=== PATIENT | female | born 1960 | race Caucasian/White ===

== ENCOUNTER → 2018-05-20 | Outpatient (CLI) | payer OTHER ==
[2018-05-21 07:05] LABS: HEPATITIS B SURFACE AG Negative (Negative); HEPATITIS C VIRUS ANTIBODY <0.1 s/co (0.0-0.9)
== END | disposition home or self-care (01) ==
LOC: LAB 09:29 → US 10:00
PROVIDERS: Internal Medicine
DX: K76.0 Fatty (change of) liver, not elsewhere classified (principal); R94.5 Abnormal results of liver function studies; I10 Essential (primary) hypertension; E78.5 Hyperlipidemia, unspecified

== ENCOUNTER → 2018-07-15 | Outpatient (CLI) | payer OTHER | END | disposition home or self-care (01) | LOC: WOUNDCARE 04:57 | DX: S91.302A Unspecified open wound, left foot, initial encounter (principal); S91.301A Unspecified open wound, right foot, initial encounter; L20.9 Atopic dermatitis, unspecified; I10 Essential (primary) hypertension; K21.9 Gastro-esophageal reflux disease without esophagitis; F17.290 Nicotine dependence, other tobacco product, uncomplicated; X58.XXXA Exposure to other specified factors, initial encounter; Y93.89 Activity, other specified; Y92.89 Other specified places as the place of occurrence of the external cause; Y99.8 Other external cause status ==

== ENCOUNTER → 2018-07-27 | Outpatient (CLI) | payer OTHER | END | disposition home or self-care (01) | LOC: WOUNDCARE 02:24 | DX: S91.302D Unspecified open wound, left foot, subsequent encounter (principal); S91.301D Unspecified open wound, right foot, subsequent encounter; L20.9 Atopic dermatitis, unspecified; I10 Essential (primary) hypertension; K21.9 Gastro-esophageal reflux disease without esophagitis; F17.290 Nicotine dependence, other tobacco product, uncomplicated; X58.XXXD Exposure to other specified factors, subsequent encounter ==

== ENCOUNTER 2018-08-05 18:48 | Emergency (ER) | payer OTHER ==
[~2018-08-05] VITALS: Wt 90.7 kg
[2018-08-05 19:26] LABS: BASO # 0.1 10*3/uL (0.0-0.1); BASO % 0.9 % (0.0-1.0); EOS # 0.3 10*3/uL (0.0-0.4); EOS % 3.3 % (1.0-4.0); HEMATOCRIT 34.5 % (37.0-47.0); LYMPH # 1.8 10*3/uL (1.3-4.4); MEAN CELL VOLUME 105.2 fl (81.0-99.0); MEAN CORPUSCULAR HGB 36.6 pg (27.0-31.0); MEAN CORPUSCULAR HGB CONC 34.8 g/dl (33.0-37.0); MEAN PLATELET VOLUME 10.3 fl (9.6-12.3); MONO # 0.4 10*3/uL (0.1-1.0); MONO % 4.2 % (3.0-9.0); NEUT # 6.3 10*3/uL (2.3-7.9); NEUT % 71.4 % (47.0-73.0); PLATELET COUNT AUTOMATED 161 10*3/uL (130-400); RED BLOOD COUNT 3.28 10*6/uL (4.10-5.10); RED CELL DISTRI WIDTH 15.2 % (0-14.5); WHITE BLOOD COUNT 8.9 10*3/uL (4.8-10.8)
[2018-08-05 19:51] LABS: ALBUMIN 4.4 gm/dl (3.1-4.5); ALKALINE PHOSPHATASE 106 U/L (45-117); BUN 10 mg/dl (7-24); CHLORIDE 102 mmol/L (98-107); CREATININE 0.63 mg/dL (0.55-1.02); POTASSIUM 3.7 mmol/L (3.5-5.1); SGOT/AST 91 IU/L (3-35); SGPT/ALT 61 U/L (12-78); SODIUM 139 mmol/L (136-145); TOTAL PROTEIN 8.5 gm/dL (6.4-8.2)
== END 2018-08-05 21:50 | disposition left against medical advice (07) ==
LOC: ED 18:48
PROVIDERS: Physician Assistant
DX: L03.116 Cellulitis of left lower limb (principal); L03.115 Cellulitis of right lower limb; Z88.5 Allergy status to narcotic agent

== ENCOUNTER → 2018-09-30 | Outpatient (CLI) | payer OTHER ==
[2018-09-30 15:54] LABS: HEMATOCRIT 34.6 % (37.0-47.0); HEMOGLOBIN 11.8 g/dl (12.0-16.0); MEAN CELL VOLUME 109.1 fl (81.0-99.0); MEAN CORPUSCULAR HGB 37.2 pg (27.0-31.0); MEAN CORPUSCULAR HGB CONC 34.1 g/dl (33.0-37.0); MEAN PLATELET VOLUME 10.8 fl (9.6-12.3); PLATELET COUNT AUTOMATED 248 10*3/uL (130-400); RED BLOOD COUNT 3.17 10*6/uL (4.10-5.10); RED CELL DISTRI WIDTH 15.9 % (0-14.5); WHITE BLOOD COUNT 10.9 10*3/uL (4.8-10.8)
[2018-09-30 16:37] LABS: BASOPHILS 2 % (0-1); PLATELET SUFFICIENCY NORMAL (NORMAL); TARGET CELLS MODERATE; TOTAL CELLS COUNTED 100 #CELLS
[2018-09-30 16:38] LABS: ALBUMIN 3.9 gm/dl (3.1-4.5); ALKALINE PHOSPHATASE 161 U/L (45-117); BUN 12 mg/dl (7-24); CHLORIDE 100 mmol/L (98-107); CREATININE 0.85 mg/dL (0.55-1.02); POTASSIUM 3.6 mmol/L (3.5-5.1); SGOT/AST 137 IU/L (3-35); SGPT/ALT 104 U/L (12-78); SODIUM 135 mmol/L (136-145); TOTAL PROTEIN 7.8 gm/dL (6.4-8.2)
[2018-10-02 18:07] LABS: TB1 Ag VALUE 0.04 IU/mL (.)
== END | disposition home or self-care (01) ==
LOC: LAB 14:46
PROVIDERS: Specialist
DX: L25.5 Unspecified contact dermatitis due to plants, except food (principal)

== ENCOUNTER 2020-03-30 01:38 | Emergency (ER) | payer OTHER ==
[~2020-03-30] VITALS: Ht 162.5 cm; Wt 47.6 kg
== END 2020-03-30 02:59 | disposition home or self-care (01) ==
LOC: ED 01:38
DX: Z48.89 Encounter for other specified surgical aftercare (principal); Z88.5 Allergy status to narcotic agent

== ENCOUNTER → 2020-11-02 | Outpatient (CLI) | payer OTHER ==
[~2020-11-02] MED LIST: LASIX40 MG PO; POTASSIUM CHLO20 ME3 PO
[2020-11-02 11:05] LABS: BASO # 0.1 10*3/uL (0.0-0.1); EOS # 0.3 10*3/uL (0.0-0.4); EOS % 2.8 % (1.0-4.0); HEMATOCRIT 32.7 % (37.0-47.0); LYMPH # 2.6 10*3/uL (1.3-4.4); LYMPH % 26.1 % (27.0-41.0); MEAN CELL VOLUME 103.8 fl (81.0-99.0); MEAN CORPUSCULAR HGB 32.4 pg (27.0-31.0); MEAN CORPUSCULAR HGB CONC 31.2 g/dl (33.0-37.0); MEAN PLATELET VOLUME 9.1 fl (9.6-12.3); MONO # 0.5 10*3/uL (0.1-1.0); MONO % 5.5 % (3.0-9.0); NEUT # 6.3 10*3/uL (2.3-7.9); PLATELET COUNT AUTOMATED 364 10*3/uL (130-400); RED BLOOD COUNT 3.15 10*6/uL (4.10-5.10); RED CELL DISTRI WIDTH 16.6 % (0-14.5); WHITE BLOOD COUNT 9.9 10*3/uL (4.8-10.8)
[2020-11-02 11:12] LABS: INTERNATIONAL NORM RATIO 1.1 (2.0-3.5)
[2020-11-02 11:40] LABS: BUN 10 mg/dl (7-24)
[2020-11-02 11:41] LABS: CHLORIDE 106 mmol/L (98-107); CHOLESTEROL 133 mg/dL (<200); CREATININE 0.69 mg/dL (0.55-1.02); LDL CHOLESTEROL 82 mg/dL (9-159); POTASSIUM 3.2 mmol/L (3.5-5.1); SODIUM 134 mmol/L (136-145); TRIGLYCERIDES 84 mg/dl (<150)
[2020-11-02 11:42] LABS: ALBUMIN 2.7 gm/dl (3.1-4.5); ALKALINE PHOSPHATASE 176 U/L (45-117); SGOT/AST 35 IU/L (3-35); SGPT/ALT 14 U/L (12-78); TOTAL PROTEIN 7.8 gm/dL (6.4-8.2)
== END | disposition home or self-care (01) ==
LOC: LAB 10:39
PROVIDERS: Physical Therapist; ATTEND Family Medicine
DX: I10 Essential (primary) hypertension (principal); E78.5 Hyperlipidemia, unspecified; K74.60 Unspecified cirrhosis of liver

== ENCOUNTER 2020-11-03 07:16 | Emergency (ER) | payer OTHER ==
[~2020-11-03] VITALS: Ht 167.6 cm; Wt 62.6 kg
[2020-11-03 09:06] LABS: BODY FLUID WBC 54 /uL
[2020-11-03 09:53] LABS: BF LYMPHOCYTES 14 %; BF MACROPHAGES 81 %; BF MESOTHELIALS 1 %; BF NEUTROPHILS 4 %
[2020-11-03] MEDS ORDERED: POTASSIUM CHLO20 ME3 PO (10:03)
[2020-11-03] MEDS ORDERED: LASIX40 MG PO (10:03)
== END 2020-11-03 10:58 | disposition home or self-care (01) ==
LOC: ED 07:16
PROVIDERS: Emergency Medicine
DX: K70.31 Alcoholic cirrhosis of liver with ascites (principal); Z88.5 Allergy status to narcotic agent

== ENCOUNTER → 2020-11-15 | Outpatient (CLI) | payer OTHER ==
[~2020-11-15] MED LIST changes: +PROTONIX TR40 M1 PO; +ZYRTEC10 M3 PO
[2020-11-15 08:52] LABS: HEMATOCRIT 32.4 % (37.0-47.0); MEAN CORPUSCULAR HGB 31.1 pg (27.0-31.0); MEAN CORPUSCULAR HGB CONC 32.1 g/dl (33.0-37.0); PLATELET COUNT AUTOMATED 296 10*3/uL (130-400); RED BLOOD COUNT 3.34 10*6/uL (4.10-5.10); RED CELL DISTRI WIDTH 15.3 % (0-14.5); WHITE BLOOD COUNT 8.7 10*3/uL (4.8-10.8)
[2020-11-15 09:03] LABS: ACT PARTIAL THROMBO TIME 31.9 SECONDS (20.0-32.1); INTERNATIONAL NORM RATIO 1.1 (2.0-3.5)
[2020-11-15 09:09] LABS: ATYPICAL LYMPHS 1 % (0-0); BASOPHILS 1 % (0-1); TOTAL CELLS COUNTED 100 #CELLS
[2020-11-15 09:10] LABS: OVALOCYTES FEW; PLATELET SUFFICIENCY NORMAL (NORMAL); POLYCHROMASIA SLIGHT; ROULEAUX SLIGHT
[2020-11-15 10:27] VITALS: BP 113/65
== END | disposition home or self-care (01) ==
LOC: LAB 00:05 → EDSTATUS 08:30
PROVIDERS: Physical Therapist; ATTEND Family Medicine
DX: R18.8 Other ascites (principal); K74.60 Unspecified cirrhosis of liver; I10 Essential (primary) hypertension; E78.00 Pure hypercholesterolemia, unspecified; F41.9 Anxiety disorder, unspecified; K21.9 Gastro-esophageal reflux disease without esophagitis; Z98.890 Other specified postprocedural states

== ENCOUNTER → 2020-11-21 | Outpatient (CLI) | payer OTHER | END | disposition home or self-care (01) | LOC: MAMMO 11:00 | PROVIDERS: ATTEND Physical Therapist | DX: Z12.31 Encounter for screening mammogram for malignant neoplasm of breast (principal) ==

== ENCOUNTER → 2020-11-29 | Outpatient (CLI) | payer OTHER | END | disposition home or self-care (01) | LOC: EDSTATUS 09:30 | PROVIDERS: ATTEND Family Medicine | DX: R18.8 Other ascites (principal); K74.60 Unspecified cirrhosis of liver; I10 Essential (primary) hypertension; K21.9 Gastro-esophageal reflux disease without esophagitis; E78.00 Pure hypercholesterolemia, unspecified; F41.9 Anxiety disorder, unspecified; Z98.890 Other specified postprocedural states ==

== ENCOUNTER → 2020-12-13 | Outpatient (CLI) | payer OTHER | END | disposition home or self-care (01) | LOC: US 09:30 → EDSTATUS 09:30 | PROVIDERS: ATTEND Family Medicine | DX: K74.60 Unspecified cirrhosis of liver (principal) ==

== ENCOUNTER → 2020-12-20 | Outpatient (CLI) | payer OTHER ==
[2020-12-20 09:54] LABS: HEMATOCRIT 29.9 % (37.0-47.0); MEAN CELL VOLUME 92.6 fl (81.0-99.0); MEAN CORPUSCULAR HGB 29.4 pg (27.0-31.0); MEAN CORPUSCULAR HGB CONC 31.8 g/dl (33.0-37.0); MEAN PLATELET VOLUME 8.8 fl (9.6-12.3); PLATELET COUNT AUTOMATED 290 10*3/uL (130-400); RED BLOOD COUNT 3.23 10*6/uL (4.10-5.10); RED CELL DISTRI WIDTH 15.6 % (0-14.5); WHITE BLOOD COUNT 7.4 10*3/uL (4.8-10.8)
[2020-12-20 10:07] LABS: ACT PARTIAL THROMBO TIME 30.5 SECONDS (20.0-32.1); INTERNATIONAL NORM RATIO 1.1 (2.0-3.5)
[2020-12-20 10:18] LABS: PLATELET SUFFICIENCY NORMAL (NORMAL); TOTAL CELLS COUNTED 100 #CELLS
== END | disposition home or self-care (01) ==
LOC: US 09:30 → EDSTATUS 09:30 → LAB 09:34
PROVIDERS: Physical Therapist; ATTEND Family Medicine
DX: K74.60 Unspecified cirrhosis of liver (principal)

== ENCOUNTER → 2021-01-16 | Outpatient (CLI) | payer OTHER ==
[2021-01-16 10:53] LABS: RETICULOCYTE % 1.85 % (0.50-2.50)
[2021-01-16 10:54] LABS: BASO % 0.6 % (0.0-1.0); EOS # 0.2 10*3/uL (0.0-0.4); EOS % 3.3 % (1.0-4.0); HEMATOCRIT 30.1 % (37.0-47.0); MEAN CELL VOLUME 91.5 fl (81.0-99.0); MEAN CORPUSCULAR HGB 28.9 pg (27.0-31.0); MEAN CORPUSCULAR HGB CONC 31.6 g/dl (33.0-37.0); MEAN PLATELET VOLUME 9.8 fl (9.6-12.3); MONO # 0.5 10*3/uL (0.1-1.0); MONO % 7.5 % (3.0-9.0); NEUT # 4.2 10*3/uL (2.3-7.9); NEUT % 59.7 % (47.0-73.0); PLATELET COUNT AUTOMATED 242 10*3/uL (130-400); RED BLOOD COUNT 3.29 10*6/uL (4.10-5.10); RED CELL DISTRI WIDTH 18.6 % (0-14.5)
[2021-01-16 11:05] LABS: ACT PARTIAL THROMBO TIME 31.1 SECONDS (20.0-32.1); INTERNATIONAL NORM RATIO 1.1 (2.0-3.5)
[2021-01-16 11:31] LABS: FERRITIN 21.6 ng/mL (10.0-291.0)
[2021-01-16 11:32] LABS: ALBUMIN 3.7 gm/dl (3.1-4.5); BUN 25 mg/dl (7-24); CHLORIDE 104 mmol/L (98-107); CREATININE 0.91 mg/dL (0.55-1.02); IRON 41 ug/dL (50-170); POTASSIUM 3.9 mmol/L (3.5-5.1); SGOT/AST 38 IU/L (3-35); SGPT/ALT 20 U/L (12-78); SODIUM 137 mmol/L (136-145)
[2021-01-16 11:35] LABS: ALKALINE PHOSPHATASE 181 U/L (45-117); TOTAL PROTEIN 9.4 gm/dL (6.4-8.2)
[2021-01-16 11:36] LABS: TOTAL IRON BINDING CAPACITY 551 ug/dl (250-450)
[2021-01-17 04:06] LABS: AFP TUMOR MARKER 2.8 ng/mL (0.0-8.3)
[2021-01-17 08:08] LABS: HEP B CORE AB, IGM Negative (Negative); HEPATITIS B SURFACE AB Non Reactive (.); HEPATITIS B SURFACE AG Negative (Negative); HEPATITIS C VIRUS ANTIBODY 0.1 s/co (0.0-0.9)
[2021-01-17 13:06] LABS: t-TRANSGLUTAMINASE (tTG) IGA <2 U/mL (0-3); t-TRANSGLUTAMINASE (tTG) IgG 5 U/mL (0-5)
== END | disposition home or self-care (01) ==
LOC: LAB 09:48 → US 10:00
PROVIDERS: Physical Therapist; ATTEND Nurse Practitioner Family
DX: Z11.3 Encounter for screening for infections with a predominantly sexual mode of transmission (principal); K80.20 Calculus of gallbladder without cholecystitis without obstruction; K76.0 Fatty (change of) liver, not elsewhere classified; K82.8 Other specified diseases of gallbladder; D64.9 Anemia, unspecified; R18.8 Other ascites

== ENCOUNTER → 2021-02-19 | Outpatient (CLI) | payer OTHER | END | disposition home or self-care (01) | LOC: COVID19 17:25 | PROVIDERS: ATTEND Internal Medicine | DX: Z11.52 Encounter for screening for COVID-19 (principal) ==

== ENCOUNTER 2021-03-31 08:18 | Emergency (ER) | payer OTHER ==
[2021-03-31 08:41] LABS: BASO # 0.1 10*3/uL (0.0-0.1); BASO % 1.2 % (0.0-1.0); EOS # 0.1 10*3/uL (0.0-0.4); EOS % 1.4 % (1.0-4.0); HEMATOCRIT 25.6 % (37.0-47.0); LYMPH # 1.7 10*3/uL (1.3-4.4); LYMPH % 19.9 % (27.0-41.0); MEAN CELL VOLUME 100.4 fl (81.0-99.0); MEAN CORPUSCULAR HGB 32.5 pg (27.0-31.0); MEAN CORPUSCULAR HGB CONC 32.4 g/dl (33.0-37.0); MEAN PLATELET VOLUME 9.6 fl (9.6-12.3); MONO % 11.4 % (3.0-9.0); NEUT # 5.4 10*3/uL (2.3-7.9); NEUT % 65.1 % (47.0-73.0); PLATELET COUNT AUTOMATED 113 10*3/uL (130-400); RED BLOOD COUNT 2.55 10*6/uL (4.10-5.10); RED CELL DISTRI WIDTH 28.3 % (0-14.5); WHITE BLOOD COUNT 8.3 10*3/uL (4.8-10.8)
[2021-03-31 09:07] LABS: ALBUMIN 3.3 gm/dl (3.1-4.5); ALKALINE PHOSPHATASE 270 U/L (45-117); BUN 20 mg/dl (7-24); CHLORIDE 98 mmol/L (98-107); CREATININE 1.01 mg/dL (0.55-1.02); POTASSIUM 3.9 mmol/L (3.5-5.1); SGOT/AST 176 IU/L (3-35); SGPT/ALT 48 U/L (12-78); SODIUM 132 mmol/L (136-145); TOTAL PROTEIN 8.7 gm/dL (6.4-8.2)
== END 2021-03-31 12:11 | disposition home or self-care (01) ==
LOC: ED 08:18
PROVIDERS: Emergency Medicine
DX: S01.531A Puncture wound without foreign body of lip, initial encounter (principal); F10.229 Alcohol dependence with intoxication, unspecified; Z88.5 Allergy status to narcotic agent; Z79.899 Other long term (current) drug therapy; Z90.89 Acquired absence of other organs; Z90.49 Acquired absence of other specified parts of digestive tract; Y90.8 Blood alcohol level of 240 mg/100 ml or more; X58.XXXA Exposure to other specified factors, initial encounter; Y93.89 Activity, other specified; Y92.89 Other specified places as the place of occurrence of the external cause; Y99.8 Other external cause status

== ENCOUNTER → 2021-04-05 | Outpatient (CLI) | payer OTHER | LOC: WOUNDCARE 00:41 | PROVIDERS: ATTEND Nurse Practitioner Family | DX: S01.501A Unspecified open wound of lip, initial encounter (principal); K21.9 Gastro-esophageal reflux disease without esophagitis; F17.290 Nicotine dependence, other tobacco product, uncomplicated; Z88.5 Allergy status to narcotic agent; Z79.899 Other long term (current) drug therapy; Z90.89 Acquired absence of other organs; Z90.49 Acquired absence of other specified parts of digestive tract; X58.XXXA Exposure to other specified factors, initial encounter; Y93.89 Activity, other specified; Y92.89 Other specified places as the place of occurrence of the external cause; Y99.8 Other external cause status ==

== ENCOUNTER → 2021-04-29 | Outpatient (CLI) | payer OTHER ==
[2021-04-29 09:21] LABS: HEMATOCRIT 26.6 % (37.0-47.0); MEAN CELL VOLUME 101.1 fl (81.0-99.0); MEAN CORPUSCULAR HGB 31.6 pg (27.0-31.0); MEAN CORPUSCULAR HGB CONC 31.2 g/dl (33.0-37.0); MEAN PLATELET VOLUME 10.1 fl (9.6-12.3); PLATELET COUNT AUTOMATED 155 10*3/uL (130-400); RED BLOOD COUNT 2.63 10*6/uL (4.10-5.10); RED CELL DISTRI WIDTH 17.7 % (0-14.5); WHITE BLOOD COUNT 8.1 10*3/uL (4.8-10.8)
[2021-04-29 09:29] LABS: ACT PARTIAL THROMBO TIME 31.7 SECONDS (20.0-32.1); INTERNATIONAL NORM RATIO 1.1 (2.0-3.5)
[2021-04-29 09:47] LABS: ALBUMIN 3.2 gm/dl (3.1-4.5); ALKALINE PHOSPHATASE 225 U/L (45-117); BUN 18 mg/dl (7-24); CHLORIDE 107 mmol/L (98-107); CREATININE 0.83 mg/dL (0.55-1.02); SGOT/AST 102 IU/L (3-35); SGPT/ALT 37 U/L (12-78); SODIUM 137 mmol/L (136-145); TOTAL PROTEIN 8.8 gm/dL (6.4-8.2)
[2021-04-29 09:49] LABS: ATYPICAL LYMPHS 4 % (0-0); BASOPHILS 1 % (0-1); OVALOCYTES FEW; PLATELET SUFFICIENCY NORMAL (NORMAL); POLYCHROMASIA SLIGHT; TOTAL CELLS COUNTED 100 #CELLS
== END | disposition home or self-care (01) ==
LOC: LAB 02:19 → EDSTATUS 09:30
PROVIDERS: ATTEND Physical Therapist
DX: K74.60 Unspecified cirrhosis of liver (principal); D64.9 Anemia, unspecified

== ENCOUNTER 2021-07-27 23:42 | Emergency (ER) | payer OTHER ==
[~2021-07-27] VITALS: Ht 160 cm; Wt 52.2 kg
[2021-07-28] VITALS (22 sets, daily range): BP systolic 100–121; BP diastolic 53–80
[2021-07-28 00:58] LABS: MEAN CELL VOLUME 104.5 fl (81.0-99.0); MEAN CORPUSCULAR HGB 31.6 pg (27.0-31.0); MEAN CORPUSCULAR HGB CONC 30.3 g/dl (33.0-37.0); MEAN PLATELET VOLUME 11.2 fl (9.6-12.3); NUCLEATED RED BLOOD CELL 0.1 % (0.0-0.0); PLATELET COUNT AUTOMATED 174 10*3/uL (130-400); RED BLOOD COUNT 1.77 10*6/uL (4.10-5.10); RED CELL DISTRI WIDTH 26.7 % (0-14.5); WHITE BLOOD COUNT 14.8 10*3/uL (4.8-10.8)
[2021-07-28 01:02] LABS: MANUAL DIFF REFLEX YES
[2021-07-28 01:04] LABS: HEMATOCRIT 18.5 % (37.0-47.0)
[2021-07-28 01:19] LABS: CREATININE 1.6 mg/dL (0.55-1.02); POTASSIUM 3.9 mmol/L (3.5-5.1); TOTAL PROTEIN 7.6 gm/dL (6.4-8.2)
[2021-07-28 01:34] LABS: OVALOCYTES FEW; PLATELET SUFFICIENCY NORMAL (NORMAL); SCHISTOCYTES FEW; TOTAL CELLS COUNTED 100 #CELLS
[2021-07-28 05:12] LABS: INTERNATIONAL NORM RATIO 1.5 (2.0-3.5)
== END 2021-07-28 09:26 | disposition short-term general hospital (02) ==
LOC: ED 23:42 → EDHOLD 07-28 04:36 → ED 07-28 04:36
PROVIDERS: Emergency Medicine
DX: K92.2 Gastrointestinal hemorrhage, unspecified (principal); Z88.6 Allergy status to analgesic agent; Z79.899 Other long term (current) drug therapy; Z90.49 Acquired absence of other specified parts of digestive tract

== ENCOUNTER 2021-10-31 01:05 | Inpatient (IN) | payer OTHER ==
[~2021-10-31] VITALS: Ht 167.6 cm; Wt 60.0 kg
[2021-10-31] VITALS (88 sets, daily range): BP systolic 63–163; BP diastolic 24–71
[2021-10-31 01:52] LABS: MEAN CELL VOLUME 106.1 fl (81.0-99.0); MEAN CORPUSCULAR HGB 31.1 pg (27.0-31.0); MEAN CORPUSCULAR HGB CONC 29.3 g/dl (33.0-37.0); MEAN PLATELET VOLUME 11.7 fl (9.6-12.3); NUCLEATED RED BLOOD CELL 0.1 10*3/uL (0.0-0.0); NUCLEATED RED BLOOD CELL 0.8 % (0.0-0.0); PLATELET COUNT AUTOMATED 129 10*3/uL (130-400); RED BLOOD COUNT 1.32 10*6/uL (4.10-5.10); RED CELL DISTRI WIDTH 27.4 % (0-14.5); WHITE BLOOD COUNT 10.9 10*3/uL (4.8-10.8)
[2021-10-31 01:55] LABS: CREATININE 1.52 mg/dL (0.55-1.02); POTASSIUM 4.6 mmol/L (3.5-5.1); TOTAL PROTEIN 6.3 gm/dL (6.4-8.2)
[2021-10-31 01:57] LABS: MANUAL DIFF REFLEX YES
[2021-10-31 02:24] LABS: ATYPICAL LYMPHS 3 % (0-0); BASOPHILS 2 % (0-1); PLATELET SUFFICIENCY LOW (NORMAL); TOTAL CELLS COUNTED 100 #CELLS
[2021-10-31 02:25] LABS: BURR CELLS FEW
[2021-10-31 02:28] LABS: TARGET CELLS FEW
[2021-10-31 09:43] LABS: HEMATOCRIT 22.3 % (37.0-47.0); MEAN CORPUSCULAR HGB 30.4 pg (27.0-31.0); MEAN CORPUSCULAR HGB CONC 32.3 g/dl (33.0-37.0); MEAN PLATELET VOLUME 11.1 fl (9.6-12.3); NUCLEATED RED BLOOD CELL 0.2 10*3/uL (0.0-0.0); NUCLEATED RED BLOOD CELL 1.3 % (0.0-0.0); RED BLOOD COUNT 2.37 10*6/uL (4.10-5.10); RED CELL DISTRI WIDTH 18.8 % (0-14.5); WHITE BLOOD COUNT 12.4 10*3/uL (4.8-10.8)
[2021-10-31 09:44] LABS: MANUAL DIFF REFLEX YES; MEAN CELL VOLUME 94.1 fl (81.0-99.0); PLATELET COUNT AUTOMATED 75 10*3/uL (130-400)
[2021-10-31 09:48] LABS: INTERNATIONAL NORM RATIO 1.9 (2.0-3.5)
[2021-10-31 10:07] LABS: PLATELET SUFFICIENCY LOW (NORMAL); POLYCHROMASIA SLIGHT; TOTAL CELLS COUNTED 100 #CELLS
[2021-10-31 12:53] LABS: HEMATOCRIT 28.8 % (37.0-47.0); MEAN CELL VOLUME 94.1 fl (81.0-99.0); MEAN CORPUSCULAR HGB 29.7 pg (27.0-31.0); MEAN CORPUSCULAR HGB CONC 31.6 g/dl (33.0-37.0); MEAN PLATELET VOLUME 11.3 fl (9.6-12.3); NUCLEATED RED BLOOD CELL 0.3 10*3/uL (0.0-0.0); NUCLEATED RED BLOOD CELL 2.4 % (0.0-0.0); PLATELET COUNT AUTOMATED 94 10*3/uL (130-400); RED BLOOD COUNT 3.06 10*6/uL (4.10-5.10); RED CELL DISTRI WIDTH 18.7 % (0-14.5); WHITE BLOOD COUNT 13.2 10*3/uL (4.8-10.8)
[2021-10-31 12:54] LABS: MANUAL DIFF REFLEX YES
[2021-10-31 13:20] LABS: BURR CELLS MODERATE; PLATELET SUFFICIENCY LOW (NORMAL); POLYCHROMASIA MODERATE; TOTAL CELLS COUNTED 100 #CELLS
[2021-10-31 13:40] LABS: ARTERIAL BLOOD GAS PO2 297.1 (80-90)
[2021-10-31 13:45] LABS: ABG BASE EXCESS -20.4 mmol/L (-2.0-2.0)
[2021-10-31 14:49] LABS: CREATININE 1.73 mg/dL (0.55-1.02); TOTAL PROTEIN 4.8 gm/dL (6.4-8.2)
[2021-10-31 14:58] LABS: POTASSIUM 5.8 mmol/L (3.5-5.1)
[2021-10-31 16:20] LABS: ARTERIAL BLOOD GAS PH 7.23 (7.35-7.45); ARTERIAL BLOOD GAS PO2 139.1 (80-90)
[2021-10-31 16:21] LABS: ABG BASE EXCESS -14.9 mmol/L (-2.0-2.0)
[2021-10-31 17:41] LABS: BILIRUBIN Negative (Negative); BLOOD Trace-Intact (Negative); CLARITY Cloudy (Clear); COLOR Dark Yellow (Yellow); GLUCOSE Negative (Negative); KETONE Trace (Negative); LEUKO ESTERASE Negative (Negative); NITRITE Negative (Negative); SPECIFIC GRAVITY 1.015 (1.001-1.030)
[2021-10-31 18:05] LABS: BACTERIA 4+
[2021-10-31 21:44] LABS: MEAN CORPUSCULAR HGB 30.7 pg (27.0-31.0); MEAN CORPUSCULAR HGB CONC 33.9 g/dl (33.0-37.0); MEAN PLATELET VOLUME 11.3 fl (9.6-12.3); NUCLEATED RED BLOOD CELL 0.6 10*3/uL (0.0-0.0); NUCLEATED RED BLOOD CELL 4.1 % (0.0-0.0); PLATELET COUNT AUTOMATED 90 10*3/uL (130-400); RED BLOOD COUNT 2.12 10*6/uL (4.10-5.10); RED CELL DISTRI WIDTH 19.3 % (0-14.5); WHITE BLOOD COUNT 13.6 10*3/uL (4.8-10.8)
[2021-10-31 21:53] LABS: HEMATOCRIT 19.2 % (37.0-47.0); MANUAL DIFF REFLEX YES; MEAN CELL VOLUME 90.6 fl (81.0-99.0)
[2021-10-31 21:57] LABS: CREATININE 2.19 mg/dL (0.55-1.02)
[2021-10-31 21:59] LABS: POTASSIUM 4.5 mmol/L (3.5-5.1)
[2021-10-31 22:53] LABS: PLATELET SUFFICIENCY LOW (NORMAL); TOTAL CELLS COUNTED 100 #CELLS
[2021-10-31 22:54] LABS: BURR CELLS MODERATE; POLYCHROMASIA MODERATE
[2021-10-31 23:30] LABS: DIFFERENTIAL COMMENT SMUDGE CELLS
[2021-11-01] VITALS (91 sets, daily range): BP systolic 103–145; BP diastolic 50–73
[2021-11-01 04:45] LABS: HEMATOCRIT 22.3 % (37.0-47.0); MEAN CORPUSCULAR HGB 30.6 pg (27.0-31.0); MEAN PLATELET VOLUME 11.3 fl (9.6-12.3); NUCLEATED RED BLOOD CELL 0.6 10*3/uL (0.0-0.0); NUCLEATED RED BLOOD CELL 4.5 % (0.0-0.0); PLATELET COUNT AUTOMATED 81 10*3/uL (130-400); RED BLOOD COUNT 2.55 10*6/uL (4.10-5.10); RED CELL DISTRI WIDTH 17.3 % (0-14.5); WHITE BLOOD COUNT 12.5 10*3/uL (4.8-10.8)
[2021-11-01 05:05] LABS: MANUAL DIFF REFLEX YES; MEAN CELL VOLUME 87.5 fl (81.0-99.0)
[2021-11-01 05:08] LABS: INTERNATIONAL NORM RATIO 1.5 (2.0-3.5)
[2021-11-01 05:32] LABS: CREATININE 2.21 mg/dL (0.55-1.02)
[2021-11-01 05:38] LABS: FREE T4 1.1 ng/dl (0.76-1.46); TOTAL PROTEIN 5.2 gm/dL (6.4-8.2)
[2021-11-01 05:40] LABS: THYROID STIM HORMONE (HS) 0.423 uIU/ml (0.358-4.75)
[2021-11-01 05:49] LABS: POTASSIUM 3.4 mmol/L (3.5-5.1)
[2021-11-01 06:44] LABS: TOTAL CELLS COUNTED 100 #CELLS
[2021-11-01 06:45] LABS: BURR CELLS FEW; PLATELET SUFFICIENCY LOW (NORMAL); TARGET CELLS FEW
[2021-11-01 07:50] LABS: VITAMIN D, 25-HYDROXY 19.2 ng/mL (30-100)
[2021-11-01 09:08] LABS: HEMATOCRIT 21.6 % (37.0-47.0); MEAN CELL VOLUME 87.4 fl (81.0-99.0); MEAN CORPUSCULAR HGB CONC 34.3 g/dl (33.0-37.0); MEAN PLATELET VOLUME 10.4 fl (9.6-12.3); NUCLEATED RED BLOOD CELL 0.5 10*3/uL (0.0-0.0); NUCLEATED RED BLOOD CELL 3.9 % (0.0-0.0); PLATELET COUNT AUTOMATED 104 10*3/uL (130-400); RED BLOOD COUNT 2.47 10*6/uL (4.10-5.10); RED CELL DISTRI WIDTH 18.1 % (0-14.5); WHITE BLOOD COUNT 11.9 10*3/uL (4.8-10.8)
[2021-11-01 09:12] LABS: MANUAL DIFF REFLEX YES
[2021-11-01 10:00] LABS: TOTAL CELLS COUNTED 100 #CELLS
[2021-11-01 10:02] LABS: PLATELET SUFFICIENCY LOW (NORMAL); TARGET CELLS FEW
[2021-11-01 13:59] LABS: ABG BASE EXCESS 2.7 mmol/L (-2.0-2.0); ARTERIAL BLOOD GAS PH 7.523 (7.35-7.45); ARTERIAL BLOOD GAS PO2 93.5 (80-90)
[2021-11-02] VITALS: BP 111/58
[2021-11-02 04:00] VITALS: BP 115/55
[2021-11-02 05:57] LABS: CREATININE 1.29 mg/dL (0.55-1.02); POTASSIUM 3.1 mmol/L (3.5-5.1); TOTAL PROTEIN 5.1 gm/dL (6.4-8.2)
[2021-11-02 06:18] LABS: HEMATOCRIT 24.7 % (37.0-47.0); MEAN CELL VOLUME 88.8 fl (81.0-99.0); MEAN CORPUSCULAR HGB 30.2 pg (27.0-31.0); NUCLEATED RED BLOOD CELL 0.1 10*3/uL (0.0-0.0); NUCLEATED RED BLOOD CELL 0.7 % (0.0-0.0); PLATELET COUNT AUTOMATED 92 10*3/uL (130-400); RED BLOOD COUNT 2.78 10*6/uL (4.10-5.10); RED CELL DISTRI WIDTH 18.6 % (0-14.5); WHITE BLOOD COUNT 10.7 10*3/uL (4.8-10.8)
[2021-11-02 06:24] LABS: INTERNATIONAL NORM RATIO 1.5 (2.0-3.5)
[2021-11-02 06:34] LABS: MANUAL DIFF REFLEX YES
[2021-11-02 06:51] LABS: BURR CELLS MODERATE; PLATELET SUFFICIENCY LOW (NORMAL); POLYCHROMASIA SLIGHT; TARGET CELLS FEW; TOTAL CELLS COUNTED 100 #CELLS; TOXIC GRANULATION SLIGHT
[2021-11-02 08:00] VITALS: BP 105/53
[2021-11-02 12:00] VITALS: BP 111/55
[2021-11-02 16:00] VITALS: BP 116/57
[2021-11-02 17:26] LABS: BUN 36 mg/dl (7-24); CHLORIDE 116 mmol/L (98-107); CREATININE 1.07 mg/dL (0.55-1.02); SODIUM 147 mmol/L (136-145)
[2021-11-02 17:30] LABS: POTASSIUM 4.1 mmol/L (3.5-5.1)
[2021-11-02 20:00] VITALS: BP 127/56
[2021-11-03] VITALS: BP 142/73
[2021-11-03 04:00] VITALS: BP 139/68
[2021-11-03 05:22] LABS: ALKALINE PHOSPHATASE 103 U/L (45-117); BUN 29 mg/dl (7-24); CHLORIDE 117 mmol/L (98-107); CREATININE 0.89 mg/dL (0.55-1.02); POTASSIUM 3.5 mmol/L (3.5-5.1); SGOT/AST 698 IU/L (3-35); SGPT/ALT 234 U/L (12-78); SODIUM 147 mmol/L (136-145); TOTAL PROTEIN 5.4 gm/dL (6.4-8.2)
[2021-11-03 06:32] LABS: MEAN CORPUSCULAR HGB CONC 32.7 g/dl (33.0-37.0); MEAN PLATELET VOLUME 10.2 fl (9.6-12.3); PLATELET COUNT AUTOMATED 86 10*3/uL (130-400); RED BLOOD COUNT 2.83 10*6/uL (4.10-5.10); WHITE BLOOD COUNT 9.5 10*3/uL (4.8-10.8)
[2021-11-03 06:35] LABS: MANUAL DIFF REFLEX YES; MEAN CELL VOLUME 91.9 fl (81.0-99.0)
[2021-11-03 07:08] LABS: BASOPHILS 1 % (0-1); BURR CELLS FEW; PLATELET SUFFICIENCY LOW (NORMAL); POLYCHROMASIA SLIGHT; TARGET CELLS FEW; TOTAL CELLS COUNTED 100 #CELLS; TOXIC GRANULATION SLIGHT
[2021-11-03 08:00] VITALS: BP 118/64
[2021-11-03 12:00] VITALS: BP 112/59
[2021-11-03 16:00] VITALS: BP 109/58
[2021-11-03 20:00] VITALS: BP 113/56
[2021-11-04] VITALS: BP 134/65
[2021-11-04 04:00] VITALS: BP 128/62
[2021-11-04 05:54] LABS: BUN 26 mg/dl (7-24); CHLORIDE 120 mmol/L (98-107); CREATININE 1.11 mg/dL (0.55-1.02); POTASSIUM 3.1 mmol/L (3.5-5.1); SGOT/AST 365 IU/L (3-35); SGPT/ALT 181 U/L (12-78); SODIUM 152 mmol/L (136-145); TOTAL PROTEIN 5.7 gm/dL (6.4-8.2)
[2021-11-04 05:56] LABS: ALKALINE PHOSPHATASE 105 U/L (45-117)
[2021-11-04 06:21] LABS: HEMATOCRIT 27.6 % (37.0-47.0); MEAN CELL VOLUME 94.5 fl (81.0-99.0); MEAN CORPUSCULAR HGB 30.5 pg (27.0-31.0); MEAN CORPUSCULAR HGB CONC 32.2 g/dl (33.0-37.0); MEAN PLATELET VOLUME 10.6 fl (9.6-12.3); PLATELET COUNT AUTOMATED 96 10*3/uL (130-400); RED BLOOD COUNT 2.92 10*6/uL (4.10-5.10); RED CELL DISTRI WIDTH 21.8 % (0-14.5); WHITE BLOOD COUNT 11.3 10*3/uL (4.8-10.8)
[2021-11-04 06:27] LABS: MANUAL DIFF REFLEX YES
[2021-11-04 07:01] LABS: BURR CELLS FEW; PLATELET SUFFICIENCY NORMAL (NORMAL); SCHISTOCYTES FEW; TOTAL CELLS COUNTED 100 #CELLS
[2021-11-04 08:00] VITALS: BP 122/55
[2021-11-04 09:43] LABS: INTERNATIONAL NORM RATIO 1.3 (2.0-3.5)
[2021-11-04 12:00] VITALS: BP 104/51
[2021-11-04 16:00] VITALS: BP 126/56
[2021-11-04 20:00] VITALS: BP 134/54
[2021-11-05] VITALS: BP 90/42
[2021-11-05 04:00] VITALS: BP 84/52
[2021-11-05 05:18] LABS: CREATININE 1.18 mg/dL (0.55-1.02); TOTAL PROTEIN 5.1 gm/dL (6.4-8.2)
[2021-11-05 06:03] LABS: BASO # 0.1 10*3/uL (0.0-0.1); BASO % 0.7 % (0.0-1.0); EOS # 0.4 10*3/uL (0.0-0.4); EOS % 4.7 % (1.0-4.0); LYMPH # 1.3 10*3/uL (1.3-4.4); LYMPH % 14.7 % (27.0-41.0); MEAN CELL VOLUME 95.2 fl (81.0-99.0); MEAN CORPUSCULAR HGB 31.3 pg (27.0-31.0); MEAN CORPUSCULAR HGB CONC 32.9 g/dl (33.0-37.0); MEAN PLATELET VOLUME 10.9 fl (9.6-12.3); MONO # 1.1 10*3/uL (0.1-1.0); NEUT # 5.9 10*3/uL (2.3-7.9); NEUT % 66.3 % (47.0-73.0); PLATELET COUNT AUTOMATED 97 10*3/uL (130-400); RED BLOOD COUNT 2.52 10*6/uL (4.10-5.10); RED CELL DISTRI WIDTH 22.2 % (0-14.5); WHITE BLOOD COUNT 8.9 10*3/uL (4.8-10.8)
[2021-11-05 08:00] VITALS: BP 123/73
[2021-11-05 12:00] VITALS: BP 117/64
[2021-11-05 16:00] VITALS: BP 126/67
[2021-11-05 16:25] LABS: CREATININE 1.24 mg/dL (0.55-1.02); POTASSIUM 3.9 mmol/L (3.5-5.1)
[2021-11-05 20:00] VITALS: BP 116/64
[2021-11-06] VITALS: BP 114/58
[2021-11-06 05:45] LABS: BUN 18 mg/dl (7-24); CHLORIDE 114 mmol/L (98-107); CREATININE 0.99 mg/dL (0.55-1.02); POTASSIUM 3.5 mmol/L (3.5-5.1); SGOT/AST 162 IU/L (3-35); SGPT/ALT 111 U/L (12-78); SODIUM 143 mmol/L (136-145); TOTAL PROTEIN 5.3 gm/dL (6.4-8.2)
[2021-11-06 06:16] LABS: ALKALINE PHOSPHATASE 133 U/L (45-117)
[2021-11-06 06:28] LABS: BASO # 0.1 10*3/uL (0.0-0.1); BASO % 0.9 % (0.0-1.0); EOS # 0.4 10*3/uL (0.0-0.4); EOS % 5.3 % (1.0-4.0); HEMATOCRIT 25.5 % (37.0-47.0); LYMPH # 1.1 10*3/uL (1.3-4.4); LYMPH % 13.8 % (27.0-41.0); MEAN CELL VOLUME 95.5 fl (81.0-99.0); MEAN CORPUSCULAR HGB 31.1 pg (27.0-31.0); MEAN CORPUSCULAR HGB CONC 32.5 g/dl (33.0-37.0); NEUT # 4.9 10*3/uL (2.3-7.9); PLATELET COUNT AUTOMATED 90 10*3/uL (130-400); RED BLOOD COUNT 2.67 10*6/uL (4.10-5.10); RED CELL DISTRI WIDTH 22.1 % (0-14.5); WHITE BLOOD COUNT 7.7 10*3/uL (4.8-10.8)
[2021-11-06 08:00] VITALS: BP 115/53
[2021-11-06 12:00] VITALS: BP 127/79
[2021-11-06 16:00] VITALS: BP 104/50
[2021-11-06 20:00] VITALS: BP 106/46
[2021-11-07] VITALS: BP 114/61
[2021-11-07 06:19] LABS: BASO # 0.1 10*3/uL (0.0-0.1); BASO % 0.8 % (0.0-1.0); EOS # 0.3 10*3/uL (0.0-0.4); EOS % 3.4 % (1.0-4.0); HEMATOCRIT 25.9 % (37.0-47.0); LYMPH # 1.1 10*3/uL (1.3-4.4); LYMPH % 11.4 % (27.0-41.0); MEAN CELL VOLUME 94.5 fl (81.0-99.0); MEAN CORPUSCULAR HGB CONC 32.8 g/dl (33.0-37.0); MONO # 1.1 10*3/uL (0.1-1.0); MONO % 10.7 % (3.0-9.0); NEUT % 71.3 % (47.0-73.0); PLATELET COUNT AUTOMATED 100 10*3/uL (130-400); RED BLOOD COUNT 2.74 10*6/uL (4.10-5.10); WHITE BLOOD COUNT 9.8 10*3/uL (4.8-10.8)
[2021-11-07 06:25] LABS: BUN 17 mg/dl (7-24); CHLORIDE 111 mmol/L (98-107); POTASSIUM 3.5 mmol/L (3.5-5.1); SGOT/AST 120 IU/L (3-35); SGPT/ALT 92 U/L (12-78); SODIUM 139 mmol/L (136-145)
[2021-11-07 06:27] LABS: ALKALINE PHOSPHATASE 130 U/L (45-117); CREATININE 0.99 mg/dL (0.55-1.02); TOTAL PROTEIN 5.4 gm/dL (6.4-8.2)
[2021-11-07 08:00] VITALS: BP 117/61
[2021-11-07 12:00] VITALS: BP 112/46
[2021-11-07 16:00] VITALS: BP 110/42
[2021-11-07 20:00] VITALS: BP 109/53
[2021-11-08] VITALS: BP 116/47
[2021-11-08 06:35] LABS: BASO # 0.1 10*3/uL (0.0-0.1); BASO % 0.7 % (0.0-1.0); EOS # 0.3 10*3/uL (0.0-0.4); EOS % 2.8 % (1.0-4.0); HEMATOCRIT 26.2 % (37.0-47.0); LYMPH # 1.2 10*3/uL (1.3-4.4); LYMPH % 9.9 % (27.0-41.0); MEAN CELL VOLUME 94.2 fl (81.0-99.0); MEAN CORPUSCULAR HGB 31.3 pg (27.0-31.0); MEAN CORPUSCULAR HGB CONC 33.2 g/dl (33.0-37.0); MEAN PLATELET VOLUME 11.7 fl (9.6-12.3); MONO # 1.1 10*3/uL (0.1-1.0); MONO % 8.8 % (3.0-9.0); NEUT # 9.1 10*3/uL (2.3-7.9); NEUT % 76.1 % (47.0-73.0); PLATELET COUNT AUTOMATED 128 10*3/uL (130-400); RED BLOOD COUNT 2.78 10*6/uL (4.10-5.10)
[2021-11-08 07:02] LABS: BUN 18 mg/dl (7-24); CHLORIDE 109 mmol/L (98-107); POTASSIUM 3.3 mmol/L (3.5-5.1); SODIUM 138 mmol/L (136-145)
[2021-11-08 08:00] VITALS: BP 95/57
[2021-11-08] MEDS ORDERED: LOPRESSOR25 MG PO (11:22)
[2021-11-08] MEDS ORDERED: ALDACTONE25 MG PO (11:22)
[2021-11-08] MEDS ORDERED: LACTULOSE20 GM/30 M PO (11:22)
[2021-11-08 12:00] VITALS: BP 114/47
== END 2021-11-08 16:29 | DRG 130 ==
LOC: ED 01:05 → EDHOLD 08:44 → ICCU 08:44 → 4E 08:44 → ICCU 08:57 → 4E 11-05 11:01
PROVIDERS: Family Medicine; Hospitalist; Internal Medicine; Student in an Organized Health Care Education/Training Program; ADMIT Student in an Organized Health Care Education/Training Program; ATTEND Student in an Organized Health Care Education/Training Program
PROC: 3E0G8GC Introduction of Other Therapeutic Substance into Upper GI, Via Natural or Artificial Opening Endoscopic (ICD-10-PCS; principal; 2021-10-31)
PROC: 0W3P8ZZ Control Bleeding in Gastrointestinal Tract, Via Natural or Artificial Opening Endoscopic (ICD-10-PCS; 2021-10-31)
PROC: 5A1955Z Respiratory Ventilation, Greater than 96 Consecutive Hours (ICD-10-PCS; 2021-10-31)
PROC: 0BH17EZ Insertion of Endotracheal Airway into Trachea, Via Natural or Artificial Opening (ICD-10-PCS; 2021-10-31)
DX: J96.90 Respiratory failure, unspecified, unspecified whether with hypoxia or hypercapnia (principal); I85.01 Esophageal varices with bleeding; D62 Acute posthemorrhagic anemia; K70.9 Alcoholic liver disease, unspecified; D53.9 Nutritional anemia, unspecified; N17.0 Acute kidney failure with tubular necrosis; E43 Unspecified severe protein-calorie malnutrition; R57.8 Other shock; K72.00 Acute and subacute hepatic failure without coma; Z20.822 Contact with and (suspected) exposure to COVID-19

== ENCOUNTER → 2021-11-20 | Outpatient (CLI) | payer OTHER ==
[~2021-11-20] MED LIST changes: +ALDACTONE25 MG PO; +LACTULOSE20 GM/30 M PO; +LOPRESSOR25 MG PO
== END | disposition home or self-care (01) ==
LOC: EDSTATUS 10:00
PROVIDERS: ATTEND Student in an Organized Health Care Education/Training Program
DX: K70.31 Alcoholic cirrhosis of liver with ascites (principal)

== ENCOUNTER → 2021-11-29 | Outpatient (CLI) | payer OTHER | END | disposition home or self-care (01) | LOC: LAB 00:02 → EDSTATUS 10:30 → LAB 10:30 | PROVIDERS: ATTEND Student in an Organized Health Care Education/Training Program | DX: R18.8 Other ascites (principal) ==

== ENCOUNTER → 2021-12-24 | Outpatient (CLI) | payer OTHER ==
[2021-12-24 12:02] LABS: MEAN CELL VOLUME 93.3 fl (81.0-99.0); MEAN CORPUSCULAR HGB 30.2 pg (27.0-31.0); MEAN CORPUSCULAR HGB CONC 32.4 g/dl (33.0-37.0); MEAN PLATELET VOLUME 9.1 fl (9.6-12.3); PLATELET COUNT AUTOMATED 262 10*3/uL (130-400); RED BLOOD COUNT 2.68 10*6/uL (4.10-5.10); RED CELL DISTRI WIDTH 18.3 % (0-14.5); WHITE BLOOD COUNT 6.9 10*3/uL (4.8-10.8)
[2021-12-24 12:03] LABS: MANUAL DIFF REFLEX YES
[2021-12-24 12:06] LABS: ACT PARTIAL THROMBO TIME 33.4 SECONDS (20.0-32.1); INTERNATIONAL NORM RATIO 1.2 (2.0-3.5)
[2021-12-24 12:19] LABS: BASOPHILS 1 % (0-1); PLATELET SUFFICIENCY NORMAL (NORMAL); POLYCHROMASIA SLIGHT; TARGET CELLS FEW; TOTAL CELLS COUNTED 100 #CELLS
== END | disposition home or self-care (01) ==
LOC: LAB 11:29
PROVIDERS: ATTEND Family Medicine
DX: R18.8 Other ascites (principal); K74.60 Unspecified cirrhosis of liver

== ENCOUNTER 2022-01-21 16:44 | Emergency (ER) | payer OTHER ==
[~2022-01-21] VITALS: Wt 56.7 kg
[2022-01-21 17:33] LABS: ACT PARTIAL THROMBO TIME 26.1 SECONDS (20.0-32.1); INTERNATIONAL NORM RATIO 1.3 (2.0-3.5)
[2022-01-21 17:36] LABS: CREATININE 1.5 mg/dL (0.55-1.02); POTASSIUM 4.2 mmol/L (3.5-5.1); TOTAL PROTEIN 6.2 gm/dL (6.4-8.2)
[2022-01-21 18:48] LABS: MEAN CELL VOLUME 95.6 fl (81.0-99.0); MEAN CORPUSCULAR HGB 28.6 pg (27.0-31.0); MEAN CORPUSCULAR HGB CONC 29.9 g/dl (33.0-37.0); MEAN PLATELET VOLUME 9.9 fl (9.6-12.3); NUCLEATED RED BLOOD CELL 0.1 10*3/uL (0.0-0.0); NUCLEATED RED BLOOD CELL 0.7 % (0.0-0.0); PLATELET COUNT AUTOMATED 239 10*3/uL (130-400); RED BLOOD COUNT 0.91 10*6/uL (4.10-5.10); RED CELL DISTRI WIDTH 22.5 % (0-14.5); WHITE BLOOD COUNT 12.7 10*3/uL (4.8-10.8)
[2022-01-21 18:56] LABS: MANUAL DIFF REFLEX YES
[2022-01-21 18:57] LABS: HEMATOCRIT 8.7 % (37.0-47.0)
[2022-01-21 19:06] LABS: PLATELET SUFFICIENCY NORMAL (NORMAL); POLYCHROMASIA SLIGHT; TARGET CELLS FEW; TOTAL CELLS COUNTED 100 #CELLS; TOXIC GRANULATION SLIGHT
[2022-01-21 19:07] LABS: BURR CELLS FEW; OVALOCYTES FEW
[2022-01-21 19:08] LABS: ACANTHOCYTES FEW
== END 2022-01-21 23:09 ==
LOC: ED 16:44
PROVIDERS: Emergency Medicine
DX: K92.2 Gastrointestinal hemorrhage, unspecified (principal); I85.10 Secondary esophageal varices without bleeding; Z88.6 Allergy status to analgesic agent; Z79.899 Other long term (current) drug therapy; Z90.49 Acquired absence of other specified parts of digestive tract; Z87.891 Personal history of nicotine dependence

== ENCOUNTER 2022-02-07 04:27 | Inpatient (IN) | payer OTHER ==
[2022-02-07] VITALS (53 sets, daily range): BP systolic 70–139; BP diastolic 23–84
[~2022-02-07] VITALS: Ht 167.6 cm; Wt 67.6 kg
[2022-02-07 04:59] LABS: HEMATOCRIT 21.6 % (37.0-47.0); MEAN CELL VOLUME 100.9 fl (81.0-99.0); MEAN CORPUSCULAR HGB 30.8 pg (27.0-31.0); MEAN CORPUSCULAR HGB CONC 30.6 g/dl (33.0-37.0); PLATELET COUNT AUTOMATED 341 10*3/uL (130-400); RED BLOOD COUNT 2.14 10*6/uL (4.10-5.10); WHITE BLOOD COUNT 13.8 10*3/uL (4.8-10.8)
[2022-02-07 05:04] LABS: MANUAL DIFF REFLEX YES
[2022-02-07 05:20] LABS: CREATININE 2.68 mg/dL (0.55-1.02); TOTAL PROTEIN 6.1 gm/dL (6.4-8.2)
[2022-02-07 06:30] LABS: BASOPHILS 3 % (0-1); TOTAL CELLS COUNTED 100 #CELLS
[2022-02-07 06:31] LABS: BURR CELLS FEW; PLATELET SUFFICIENCY NORMAL (NORMAL); TARGET CELLS FEW
[2022-02-07 06:47] LABS: INTERNATIONAL NORM RATIO 1.5 (2.0-3.5)
[2022-02-07 12:01] LABS: HEMATOCRIT 23.8 % (37.0-47.0)
[2022-02-07 12:11] LABS: INTERNATIONAL NORM RATIO 1.6 (2.0-3.5)
[2022-02-07 16:37] LABS: HEMATOCRIT 29.2 % (37.0-47.0); MEAN CELL VOLUME 88.5 fl (81.0-99.0); MEAN CORPUSCULAR HGB 29.7 pg (27.0-31.0); MEAN CORPUSCULAR HGB CONC 33.6 g/dl (33.0-37.0); PLATELET COUNT AUTOMATED 242 10*3/uL (130-400); RED CELL DISTRI WIDTH 16.1 % (0-14.5)
[2022-02-07 16:38] LABS: MANUAL DIFF REFLEX YES
[2022-02-07 17:03] LABS: BASOPHILS 1 % (0-1); PLATELET SUFFICIENCY NORMAL (NORMAL); TARGET CELLS FEW; TOTAL CELLS COUNTED 100 #CELLS
[2022-02-07 17:04] LABS: BURR CELLS MODERATE
[2022-02-07] MEDS ORDERED: NADOLOL20 MG PO (18:45)
[2022-02-07] MEDS ORDERED: LASIX40 MG PO (18:46)
[2022-02-07] MEDS ORDERED: VITAMIN B1 PO (18:48)
[2022-02-08] VITALS (22 sets, daily range): BP systolic 97–145; BP diastolic 44–83
[2022-02-08 04:59] LABS: MEAN CELL VOLUME 89.9 fl (81.0-99.0); MEAN CORPUSCULAR HGB 29.4 pg (27.0-31.0); MEAN CORPUSCULAR HGB CONC 32.7 g/dl (33.0-37.0); MEAN PLATELET VOLUME 9.8 fl (9.6-12.3); PLATELET COUNT AUTOMATED 212 10*3/uL (130-400); RED BLOOD COUNT 2.28 10*6/uL (4.10-5.10); RED CELL DISTRI WIDTH 17.2 % (0-14.5); WHITE BLOOD COUNT 11.7 10*3/uL (4.8-10.8)
[2022-02-08 05:04] LABS: HEMATOCRIT 20.5 % (37.0-47.0); MANUAL DIFF REFLEX YES
[2022-02-08 05:10] LABS: ACT PARTIAL THROMBO TIME 34.9 SECONDS (20.0-32.1); INTERNATIONAL NORM RATIO 1.4 (2.0-3.5)
[2022-02-08 05:21] LABS: CREATININE 2.4 mg/dL (0.55-1.02); POTASSIUM 4.7 mmol/L (3.5-5.1); TOTAL PROTEIN 4.9 gm/dL (6.4-8.2)
[2022-02-08 05:23] LABS: FREE T4 1.1 ng/dl (0.76-1.46)
[2022-02-08 05:27] LABS: THYROID STIM HORMONE (HS) 1.24 uIU/ml (0.358-4.75)
[2022-02-08 07:05] LABS: BASOPHILS 1 % (0-1); PLATELET SUFFICIENCY NORMAL (NORMAL); TARGET CELLS FEW; TOTAL CELLS COUNTED 100 #CELLS
[2022-02-08 07:06] LABS: BURR CELLS FEW; POLYCHROMASIA SLIGHT; TOXIC GRANULATION SLIGHT
[2022-02-08 21:51] LABS: HEMATOCRIT 27.5 % (37.0-47.0); MEAN CELL VOLUME 90.2 fl (81.0-99.0); MEAN CORPUSCULAR HGB 30.8 pg (27.0-31.0); MEAN CORPUSCULAR HGB CONC 34.2 g/dl (33.0-37.0); MEAN PLATELET VOLUME 9.4 fl (9.6-12.3); PLATELET COUNT AUTOMATED 210 10*3/uL (130-400); RED BLOOD COUNT 3.05 10*6/uL (4.10-5.10); RED CELL DISTRI WIDTH 14.8 % (0-14.5); WHITE BLOOD COUNT 12.8 10*3/uL (4.8-10.8)
[2022-02-08 21:54] LABS: MANUAL DIFF REFLEX YES
[2022-02-08 22:17] LABS: BASOPHILS 1 % (0-1); PLATELET SUFFICIENCY NORMAL (NORMAL); TOTAL CELLS COUNTED 100 #CELLS
[2022-02-08 22:18] LABS: BURR CELLS FEW
[2022-02-09] VITALS: BP 120/58
[2022-02-09 04:00] VITALS: BP 124/60
[2022-02-09 05:20] LABS: CREATININE 2.35 mg/dL (0.55-1.02); POTASSIUM 4.6 mmol/L (3.5-5.1)
[2022-02-09 06:11] LABS: BASO # 0.1 10*3/uL (0.0-0.1); BASO % 0.6 % (0.0-1.0); EOS # 0.9 10*3/uL (0.0-0.4); EOS % 6.7 % (1.0-4.0); HEMATOCRIT 25.6 % (37.0-47.0); LYMPH # 1.3 10*3/uL (1.3-4.4); LYMPH % 10.4 % (27.0-41.0); MEAN CELL VOLUME 90.1 fl (81.0-99.0); MEAN CORPUSCULAR HGB 30.3 pg (27.0-31.0); MEAN CORPUSCULAR HGB CONC 33.6 g/dl (33.0-37.0); MEAN PLATELET VOLUME 9.2 fl (9.6-12.3); MONO # 0.6 10*3/uL (0.1-1.0); MONO % 4.4 % (3.0-9.0); NEUT # 9.6 10*3/uL (2.3-7.9); NEUT % 76.6 % (47.0-73.0); PLATELET COUNT AUTOMATED 183 10*3/uL (130-400); RED BLOOD COUNT 2.84 10*6/uL (4.10-5.10); RED CELL DISTRI WIDTH 15.3 % (0-14.5); WHITE BLOOD COUNT 12.6 10*3/uL (4.8-10.8)
[2022-02-09 08:00] VITALS: BP 101/46
[2022-02-09 08:15] VITALS: BP 94/44
[2022-02-09 12:00] VITALS: BP 114/54
== END 2022-02-09 14:59 | disposition short-term general hospital (02) | DRG 242 ==
LOC: ED 04:27 → EDHOLD 08:32 → ICCU 08:32 → EDHOLD 08:53 → ICCU 09:28
PROVIDERS: Emergency Medicine; Student in an Organized Health Care Education/Training Program; Surgery; ADMIT Family Medicine; ATTEND Family Medicine
PROC: 30233K1 Transfusion of Nonautologous Frozen Plasma into Peripheral Vein, Percutaneous Approach (ICD-10-PCS; principal; 2022-02-07)
PROC: 30233N1 Transfusion of Nonautologous Red Blood Cells into Peripheral Vein, Percutaneous Approach (ICD-10-PCS; 2022-02-07)
PROC: 30233R1 Transfusion of Nonautologous Platelets into Peripheral Vein, Percutaneous Approach (ICD-10-PCS; 2022-02-07)
PROC: 0W3P8ZZ Control Bleeding in Gastrointestinal Tract, Via Natural or Artificial Opening Endoscopic (ICD-10-PCS; 2022-02-07)
PROC: 02HV33Z Insertion of Infusion Device into Superior Vena Cava, Percutaneous Approach (ICD-10-PCS; 2022-02-07)
PROC: B548ZZA Ultrasonography of Superior Vena Cava, Guidance (ICD-10-PCS; 2022-02-07)
DX: I85.01 Esophageal varices with bleeding (principal); R65.10 Systemic inflammatory response syndrome (SIRS) of non-infectious origin without acute organ dysfunction; E87.1 Hypo-osmolality and hyponatremia; N17.0 Acute kidney failure with tubular necrosis; E43 Unspecified severe protein-calorie malnutrition; K70.30 Alcoholic cirrhosis of liver without ascites; D62 Acute posthemorrhagic anemia; I95.9 Hypotension, unspecified; R73.9 Hyperglycemia, unspecified; E87.2 Acidosis; R74.01 Elevation of levels of liver transaminase levels; D53.9 Nutritional anemia, unspecified; K70.31 Alcoholic cirrhosis of liver with ascites; Z88.6 Allergy status to analgesic agent; Z90.49 Acquired absence of other specified parts of digestive tract; Z68.24 Body mass index [BMI] 24.0-24.9, adult

== ENCOUNTER 2022-02-21 13:52 | Inpatient (IN) | payer OTHER ==
[~2022-02-21] VITALS: Ht 167.6 cm; Wt 67.6 kg
[~2022-02-21 13:52] MED LIST changes: +BACLOFEN5 MG PO; +CARVEDILOL6.25 MG PO; +NADOLOL20 MG PO; +NATURE'S BLEND100 M2 PO; +SEPTDS PO; +VITAMIN B1 PO; +XIFAXAN550 MG PO
[2022-02-21 16:00] VITALS: BP 116/44
[2022-02-21 20:00] VITALS: BP 99/42
[2022-02-22 08:00] VITALS: BP 63/27
[2022-02-22 12:00] VITALS: BP 62/26
[2022-02-22 16:00] VITALS: BP 62/30
== END 2022-02-22 21:18 | DRG 441 ==
LOC: ICCU 13:52 → 4E 19:57
PROVIDERS: ADMIT Internal Medicine; ATTEND Internal Medicine
DX: K72.90 Hepatic failure, unspecified without coma (principal); E43 Unspecified severe protein-calorie malnutrition; N17.0 Acute kidney failure with tubular necrosis; K76.7 Hepatorenal syndrome; Z68.1 Body mass index [BMI] 19.9 or less, adult; E86.0 Dehydration; K70.9 Alcoholic liver disease, unspecified; R73.9 Hyperglycemia, unspecified; R74.01 Elevation of levels of liver transaminase levels; D64.9 Anemia, unspecified; E87.8 Other disorders of electrolyte and fluid balance, not elsewhere classified